=== PATIENT | male | born 1985 | race Caucasian/White ===

== ENCOUNTER 2018-02-08 16:50 | Emergency (ER) | payer OTHER ==
[~2018-02-08] VITALS: Ht 185.4 cm; Wt 77.1 kg
[2018-02-08] MEDS ORDERED: LOPERAMIDE2 M1 PO (21:17)
[2018-02-08] MEDS ORDERED: PROMETH-CODEIN 65 ML PO (21:17)
[2018-02-08] MEDS ORDERED: INTESTINEX680 M1 PO (21:17)
[2018-02-08] MEDS ORDERED: PEPCID AC20 MG PO (21:17)
[2018-02-08] MEDS ORDERED: KETO10TA2 PO (21:17)
[2018-02-08] MEDS ORDERED: OSEL75CA PO (21:17)
== END 2018-02-08 21:29 ==
LOC: ER 16:50
DX: J09.X2 Influenza due to identified novel influenza A virus with other respiratory manifestations (principal); R19.7 Diarrhea, unspecified

== ENCOUNTER 2019-02-09 13:06 | Emergency (ER) | payer OTHER ==
[~2019-02-09] VITALS: Ht 182.9 cm; Wt 65.8 kg
[~2019-02-09 13:06] MED LIST: INTESTINEX680 M1 PO; KETO10TA2 PO; LOPERAMIDE2 M1 PO; OSEL75CA PO; PEPCID AC20 MG PO; PROMETH-CODEIN 65 ML PO
[2019-02-10] MEDS ORDERED: PEPCID40 MG PO (05:13)
[2019-02-10] MEDS ORDERED: LEVSIN/SL0.125 MG SL (05:13)
[2019-02-10] MEDS ORDERED: INTESTINEX680 M1 PO (05:13)
== END 2019-02-10 05:20 | disposition home or self-care (01) ==
LOC: ER 13:06
DX: K52.9 Noninfective gastroenteritis and colitis, unspecified (principal)

== ENCOUNTER 2020-02-09 16:05 | Emergency (ER) | payer OTHER ==
[~2020-02-09] VITALS: Ht 185.4 cm; Wt 72.6 kg
[~2020-02-09 16:05] MED LIST changes: +LEVSIN/SL0.125 MG SL; +PEPCID40 MG PO
[2020-02-09] MEDS ORDERED: ZOFRAN4 MG PO (23:18)
[2020-02-09] MEDS ORDERED: INTESTINEX680 M2 PO (23:18)
[2020-02-09] MEDS ORDERED: PEPCID AC20 MG PO (23:18)
== END 2020-02-09 23:32 | disposition home or self-care (01) ==
LOC: ER 16:05
DX: K52.89 Other specified noninfective gastroenteritis and colitis (principal); A05.9 Bacterial foodborne intoxication, unspecified; Z20.828 Contact with and (suspected) exposure to other viral communicable diseases

== ENCOUNTER 2021-09-27 07:17 | Emergency (ER) | payer OTHER ==
[~2021-09-27] VITALS: Ht 182.9 cm; Wt 81.6 kg
[~2021-09-27 07:17] MED LIST changes: +FAMOTIDINE20 MG; +INTESTINEX680 M2 PO; +ZOFRAN4 MG PO
== END 2021-09-27 15:23 | disposition home or self-care (01) ==
LOC: ER 07:17
DX: R10.9 Unspecified abdominal pain (principal); K29.70 Gastritis, unspecified, without bleeding